=== PATIENT | female | born 1950 | race Two or more races ===

== ENCOUNTER 2025-03-27 07:53 | Emergency (ER) | payer OTHER ==
[~2025-03-27] VITALS: Ht 157.5 cm; Wt 69.4 kg
[~2025-03-27 07:53] MED LIST: PROVENTIL3 ML/2.5 M IH; SYNTHROID50 MCG PO; ZYNCOF 20-400120 ML PO
[2025-03-27 07:59] VITALS: BP 128/81; O2SAT 97
[2025-03-27] MEDS ORDERED: GUAIFENESIN 200 MG/10 ML BLIST.PACK PO STA (08:32)
[2025-03-27] MEDS ORDERED: CEFTRIAXONE SODIUM 1,000 MG VIAL IV STA (08:32)
[2025-03-27] MEDS ORDERED: 0.9 % SODIUM CHLORIDE 1,000 ML IV STA (08:33)
[2025-03-27] MEDS ORDERED: METHYLPREDNISOLONE SOD SUCC 125 MG VIAL IV STA (08:33)
[2025-03-27] MEDS ORDERED: METHYLPREDNISOLONE SOD SUCC 125 MG VIAL ONE (08:45)
[2025-03-27] MEDS ORDERED: IPRATROPIUM/ALBUTEROL SULFATE 3 ML AMPUL.NEB IH SCH (08:45)
[2025-03-27] MEDS ORDERED: CEFTRIAXONE SODIUM 1,000 MG VIAL ONE (08:46)
[2025-03-27] MEDS ORDERED: GUAIFENESIN 200 MG/10 ML BLIST.PACK PO ONE ×2 (08:46→08:47)
[2025-03-27 09:49] LABS: BASO % 0.5 % (0.1-1.2); EOS # 0.10 (0.04-0.54); EOS % 1.5 % (0.7-7.0); LYMPH # 2.17 (1.18-3.74); LYMPH % 33.3 % (19.3-53.1); MEAN PLATELET VOLUME 9.90 fl (9.4-12.4); MONO # 0.46 (0.24-0.82); MONO % 7.1 % (4.7-12.5); NEUT # 3.72 (1.56-6.13); NEUT % 57.0 % (34.0-71.1); RED CELL DISTRIBUTION WIDTH 12.9 % (11.6-14.4)
[2025-03-27] MEDS ORDERED: IPRATROPIUM/ALBUTEROL SULFATE 3 ML AMPUL.NEB IH ONE (09:51)
[2025-03-27 09:57] LABS: COVID-19 AG NEGATIVE (NEGATIVE)
[2025-03-27 10:20] LABS: ALT/SGPT 25.0 U/L (12-78); AST/SGOT 18.0 U/L (15-37); BILIRUBIN TOTAL 0.78 mg/dL (0.3-1.2); BUN CREA RATIO 34.0 (7.0-25.0); CREATININE SERUM 0.7 mg/dL (0.55-1.02); GFR 81.57; GLOBULINA 4.1 G/DL (2.4-3.5); GLUCOSE FASTING 105.0 mg/dL (65-100); OSMOLALITY SERUM 288.0 MOSM/KG (275-295)
== END 2025-03-27 10:57 | disposition home or self-care (01) ==
LOC: ER 07:53
PROVIDERS: General Practice
DX: R05.8 Other specified cough (principal); Z20.822 Contact with and (suspected) exposure to COVID-19
CPT/HCPCS: 36415; 71046; 94640; 96365; 99283; J0696; J7030